=== PATIENT | female | born 1955 | race Two or more races ===

== ENCOUNTER 2025-02-12 12:30 | Outpatient (CLI) | payer OTHER | END 2025-02-12 12:35 | disposition home or self-care (01) | LOC: RAD 12:30 | PROVIDERS: ATTEND Anesthesiology | DX: M17.0 Bilateral primary osteoarthritis of knee (principal) ==

== ENCOUNTER 2025-06-06 09:49 | Outpatient (CLI) | payer OTHER | END 2025-06-06 09:52 | disposition home or self-care (01) | LOC: MAMO-SONO 09:49 | PROVIDERS: ATTEND Student in an Organized Health Care Education/Training Program | DX: N60.11 Diffuse cystic mastopathy of right breast (principal); N60.12 Diffuse cystic mastopathy of left breast; Z12.31 Encounter for screening mammogram for malignant neoplasm of breast ==